=== PATIENT | male | born 1970 | race Caucasian/White ===

== ENCOUNTER 2022-08-16 16:05 | Emergency (ER) | payer OTHER ==
[2022-08-16 16:14] VITALS: BP 188/95
[2022-08-16] MEDS ORDERED: TETANUS/DIPHTHERIA/PERTUSSIS 0.5 ML SYRINGE IM ONE (16:14)
[2022-08-16] MEDS ORDERED: BUFFERED LIDOCAINE 10 ML SYRINGE SUBQ STA (16:14)
--- NOTE | 2022-08-16 16:21 | ED Physician Documentation ---
PD HPI UPPER EXT INJURY - Stated complaint Stated Complaint: R HAND INJURY - Chief complaint Chief Complaint: Laceration - History obtained from History obtained from: Patient (Right-handed 51-year-old gentleman got his dominant index finger caught in a water control supervisor shredder at home just prior to arrival. Really is not that painful because he cannot feel much in that finger.) PD PAST MEDICAL HISTORY - Present Medications Home Medications: Ambulatory Orders Medication Instructions Recorded Confirmed HYDROcod/ACETAM 5/325 [[place] 5/325] 1 - 2 tab PO Q6H PRN #15 tablet 08/16/22 cephALEXin [Keflex] 500 mg PO Q6H #28 cap 08/16/22 - Allergies Allergies/Adverse Reactions: Allergies Allergy/AdvReac Type Severity Reaction Status Date / Time No Known Drug Allergies Allergy Verified 08/16/22 16:13 PD ED PE NORMAL - Vitals Vital signs reviewed: Yes - General General: Alert and oriented X 3, No acute distress - Extremities Extremities: Other (He has a mangled injury of his right index finger with a laceration along the dorsum of the finger extending proximally to the PIP with clear open fractures and the nail is completely gone. He is insensate on the ulnar side of the finger past the PIP and has decreased sensation on the radial side.) - Neuro Neuro: Alert and oriented X 3, Normal speech Results - Vitals Vitals: Vital Signs - 24 hr 08/16/22 08/16/22 16:09 16:22 Temperature 36.6 C Heart Rate 96 Respiratory 20 Rate Blood Pressure 188/95 H O2 Saturation 85 L 98 Oxygen O2 Source Room air Procedures - General procedure General procedure: Procedure note amputation revision of right second finger with bone rongeuring and shortening and closure of skin. Verbal consent was obtained. The right hand was prepped with Hibiclens, a finger tourniquet was placed and the initial wound was washed out with copious amounts of biological material from the water control supervisor-shredder. It was both sharply debrided and scrubbed with a brush. It became clear that the nonviable tissue started at about alf down the middle phalanx and sharp excision of nonviable material distal to this was undertaken. Continued copious irrigate totalling 2L was done. Then using a combination of bone rongeuring, sharp debridement, and undermining I was able to create a tissue flap over the remainder of the bone that was left over the proximal part of the middle phalanx. This was closed with 4-0 nylon sutures. PD Medical Decision Making - ED course ED course: 51-year-old gentleman presents with a mangled right index finger. Tetanus was updated and he was given 1 g of Ancef IM. It was clear that the distal half of the finger so was nonviable. I offered to wash him out and send him to [facility] for expert consultation versus amputation revision here and he opted for the latter. Departure - Departure Disposition: Home, Self Care Clinical Impression: Amputation of right index finger Condition: Stable Record reviewed to determine appropriate education?: Yes Prescriptions: cephALEXin [Keflex] 500 mg PO Q6H #28 cap HYDROcod/ACETAM 5/325 [[place] 5/325] 1 - 2 tab PO Q6H PRN #15 tablet PRN Reason: Pain Comments: You were seen today for amputation of the right index finger. After careful debridement and bone rongeuring I was able to close it just distal to the first knuckle. You should follow-up with a hand surgeon this week in [place]. Start calling Thursday morning for appointment. You can elevate it. You can replace the dressing daily after brief wash with soap and water with a nonstick dressing and a loose wrap. When you follow-up with a hand surgeon take the CD copy of the original x-rays p reprocedure with you. I am giving you a paper copy of your prescription since we are not clear on what pharmacy you will be using at this juncture. I am prescribing a short course of narcotic pain medication for you. These are potentially dangerous and addictive medications that should be used carefully. These medications may constipate you. Take an rehu-qij-pzlhuqc stool softener (docusate) twice daily with plenty of water while taking these medications. If you go 24 hours without a bowel movement, take fupn-orv-fjgbynl miralax, per package instructions. Do not drink or drive while taking these medications. If you received narcotic or sedating medications while in the emergency department, do not drive for 24 hours. Store this medication in a safe, secure place and out of reach of children. It is a violation of federal law to give or sell this medication to another person or to use in a manner other than prescribed. The ED will not refill narcotic prescriptions, including prescriptions lost or stolen. To dispose of unwanted medications: 1. [facility] at [address] in [place] has a medication drop box. They accept prescription medications (in pill form) Thursday through Thursday 9:00 a.m. to 5:00 p.m. 2. The [facility] accepts prescription medications (in pill form only) for disposal year round. Call for more information. 3. Contact the [facility] for the next [facility] sponsored prescription drug collection event. , [phone], or [phone]; Note that many narcotic pain relievers also contain Tylenol/acetaminophen. Please ensure that your total dose of acetaminophen from all sources does not exceed 3 g (3000 mg) per day. Discharge Date/Time: 08/16/22 17:26
[2022-08-16] MEDS ORDERED: ceFAZolin 1 GM VIAL IM STA (16:23)
--- NOTE | 2022-08-16 16:32 | XRAY Report ---
PROCEDURE: Hand 2 View RT INDICATIONS: hand inj TECHNIQUE: 2 views of the hand(s) acquired. COMPARISON: None. FINDINGS: Bones: Extensive fractures with missing bone fragments can be seen involving the middle and distal p halanges of the second finger. Soft tissues: Associated soft tissue injury can be seen. IMPRESSION: Extensive comminuted fractures of the middle and distal phalanges of the second finger, with associat ed soft tissue injury. Reviewed by: Oral Ricci MD on 08/16/2022 3:31 PM CECILIO Approved by: Oral Ricci MD on 08/16/2022 3:31 PM CECILIO Station ID: [id number]
[2022-08-16] MEDS ORDERED: HYDROcod/ACET 5/325 Prepack 4 PO STA (17:03)
[2022-08-16] MEDS ORDERED: CEPHALEXIN 250 MG Prepack 8 CAP BOTTLE PO STA (17:03)
== END 2022-08-16 17:26 | disposition home or self-care (01) ==
LOC: ED 16:05
DX: S68.110A Complete traumatic metacarpophalangeal amputation of right index finger, initial encounter (principal); W31.89XA Contact with other specified machinery, initial encounter
CPT/HCPCS: 26952; 90471; 99283; 99284